=== PATIENT | male | born 1990 | race Caucasian/White ===

== ENCOUNTER 2024-05-10 17:39 | Emergency (ER) | payer OTHER, SELFPAY ==
--- NOTE | 2024-05-10 17:50 | ED.GENADULT ---
HPI - General Adult General Chief complaint: Extremity Problem,Nontraumatic Stated complaint: painful bmp on knee Source: patient Mode of arrival: ambulatory Limitations: no limitations History of Present Illness HPI narrative: 33-year-old male patient presents to [facility] with complaints of right knee pain. Patient states he had a little what he thought was an ingrown hair to the kneecap couple of days ago and Pepcid. Patient states that now the skin around it is becoming red, warm and tender to the touch. Denies fevers, body aches or chills. Related Data Home Medications Medication Instructions Recorded Confirmed dextroamphetamine-amphetamine ER PO 05/10/24 15 mg 24hr capsule,extend release Allergies Allergy/AdvReac Type Severity Reaction Status Date / Time No Known Allergies Allergy Verified 05/10/24 17:54 Review of Systems Review of Systems: CONSTITUTIONAL: Denies fever, chills, or sweats. EYES: Denies visual changes, redness, or discharge. ENT: Denies rhinorrhea, congestion, sore throat, or otalgia. CARDIOVASCULAR: Denies chest pain, palpitations, or edema. RESPIRATORY: Denies cough or dyspnea. GASTROINTESTINAL: Denies abdominal pain, nausea, vomiting, or diarrhea. GENITOURINARY: Denies dysuria or hematuria. SKIN: Denies rash or itching. Positive redness to right knee MUSCULOSKELETAL: Denies back pain, joint pain, or myalgia. NEUROLOGIC: Denies headache, numbness, or weakness. PSYCHIATRIC: Denies anxiety or depression. PMFSH Comments At the time of my signature I agree with nursing past medical history, surgical, social, and family history. There is no relevant family history pertinent to the presenting complaint. Exam Narrative: GENERAL: Well-appearing, well-nourished, and in no acute distress. HEAD: Normocephalic, atraumatic. EYES: PERRLA and EOMI. ENT: Nares clear, no rhinorrhea or epistaxis. Mucous membranes moist. NECK: Supple. No lymphadenopathy CHEST: Clear to auscultation. No respiratory distress. HEART: Regular rate and rhythm. No murmur heard. Normal peripheral pulses. ABDOMEN: Soft, nontender, nondistended, normal active bowel sounds. EXTREMITIES: Normal range of motion. No edema. SKIN: Warm, dry, no rash. patient has round erythema good area to the right knee measuring about 5 x 7. It is warm to the touch. Patient has good range of motion to the knee no concerns are in her joint infection. NEURO: No focal deficits. Alert and oriented x3. Course Course Level of Care: Express Care Visit Vital Signs Vital signs: Vital Signs Temperature 36.9 C 05/10/24 17:55 Pulse Rate 82 05/10/24 17:55 Respiratory Rate 16 05/10/24 17:55 Blood Pressure 149/95 H 05/10/24 17:55 Pulse Oximetry 99 05/10/24 17:55 Oxygen Delivery Room Air 05/10/24 17:55 Temperature 36.9 C 05/10/24 17:55 Pulse Rate 82 05/10/24 17:55 Respiratory Rate 16 05/10/24 17:55 Blood Pressure 149/95 H 05/10/24 17:55 Pulse Oximetry 99 05/10/24 17:55 Oxygen Delivery Room Air 05/10/24 17:55 Vital signs reviewed. Medical Decision Making MDM Narrative Medical decision making narrative: Discussed with patient we will discharge him home with oral antibiotics, use warm compresses to the area and the small pimple in the middle of the redness may pop on its own. May take Tylenol ibuprofen for pain. The area was marked and discussed with patient that if the redness goes outside the marked area he needs to be reassessed. Differential Diagnosis Differential Diagnosis: Differential diagnosis: Knee contusion, sprain, ligament injury, patellar dislocation, joint dislocation, patella or tibial plateau fracture, Riggins's cyst, DVT, meniscus tear, PCL tear, prepatellar bursitis, septic joint, gout, tumor. Children: Xjmf-Hprty-Adnndmc or Arianna-Schlatter disease. Vital Signs Vital Signs: Vital Signs Temperature 36.9 C 05/10/24 17:55 Pulse Rate 82 05/10/24 17:55 Respiratory Rate 16 05/10/24 17:55 Blood Pressure 149/95 H 05/10/24 17:55 Pulse Oximetry 99 05/10/24 17:55 Oxygen Delivery Room Air 05/10/24 17:55 Temperature 36.9 C 05/10/24 17:55 Pulse Rate 82 05/10/24 17:55 Respiratory Rate 16 05/10/24 17:55 Blood Pressure 149/95 H 05/10/24 17:55 Pulse Oximetry 99 05/10/24 17:55 Oxygen Delivery Room Air 05/10/24 17:55 Critical Care Time Critical Care Time Critical Care Time: No Discharge Plan Discharge Clinical Impression: Cellulitis of knee, right Patient Disposition: Home, Self-Care Condition: Stable Instructions: Antibiotic Form, Cellulitis (ED) Additional Instructions: Take the prescribed antibiotic medicine you are given as directed until it is gone. Take it even if you feel better. It treats the infection and stops it from returning. Not taking all the medicine can make future infections hard to treat. Keep the infected area clean. When possible, raise the infected area above the level of your heart. This helps keep swelling down. May take Tylenol ibuprofen as needed for pain Take your temperature once a day for a week to monitor for fevers. If you do spike a fever please call your doctor right away. Wash your hands often to prevent spreading the infection. In the future, wash your hands before and after you touch cuts, scratches, or bandages. This will help prevent infection. Please call your doctor today and be scheduled for follow-up appointments in regards to being evaluated for vascular disease. When to call your healthcare provider Call your healthcare provider immediately if you have any of the following: Difficulty or pain when moving the joints above or below the infected area Discharge or pus draining from the area Fever of 100.4?F (38?C) or higher, or as directed by your healthcare provider Pain that gets worse in or around the infected Redness that gets worse in or around the infected area, particularly if the area of redness expands to a wider area Shaking chills Swelling of the infected area Vomiting Prescriptions: New cephalexin 500 mg capsule 500 mg PO Q12H 7 Days Qty: 14 0RF No Action dextroamphetamine-amphetamine 15 mg capsule,extended release 24hr PO Follow-up/Referrals: Heaven,MD Jayme [Primary Care Provider] - Time of Disposition: 18:10
[2024-05-10 17:55] VITALS: BP 149/95; PULSE 82; RESP 16; TEMP 36.9; O2SAT 99
== END 2024-05-10 18:12 | disposition home or self-care (01) ==
PROVIDERS: Emergency Provider Nurse Practitioner Family; PCP Family Medicine
DX: L03.115 Cellulitis of right lower limb (principal)
CPT/HCPCS: 99213; G0463

== ENCOUNTER 2025-03-19 09:24 | Emergency (ER) | payer OTHER, SELFPAY ==
[2025-03-19 09:30] VITALS: BP 134/84; PULSE 75; RESP 14; TEMP 36.6; O2SAT 99
--- NOTE | 2025-03-19 09:46 | ED.SKABFB ---
HPI - Skin/Abscess/Foreign Bdy General Chief complaint: Skin/Abscess/Foreign Body Stated complaint: Rash Time Seen by Provider: 03/19/25 09:46 Source: patient Mode of arrival: ambulatory Limitations: no limitations History of Present Illness HPI narrative: 34-year-old male presents with complaint of hives and itching. Started yesterday. No new exposure to food, cleaning products, lotions. denies any significant stress. All systems reviewed and negative except as noted above Related Data Home Medications ?Medication ?Instructions ?Recorded ?Confirmed ?Last Taken ?Type dextroamphetamine-amphetamine ER PO 05/10/24 Unknown History 15 mg 24hr capsule,extend release Allergies Allergy/AdvReac Type Severity Reaction Status Date / Time No Known Allergies Allergy Verified 03/19/25 09:34 PMFSH Comments At time of signature, agree with nursing past medical, surgical, social and family history. There is no relevant family history pertinent to the presenting complaint. Exam Narrative: GENERAL: This is a well-nourished, well-developed patient, in no apparent distress. HEAD: normocephalic, atraumatic. EYES: PERRL. Sclera clear/white. Vision is grossly intact. EARS: External ears normal NOSE: External nose normal NECK: Neck supple, non-tender without lymphadenopathy, masses or thyromegaly. CARDIOVASCULAR: Regular rate and rhythm without murmurs, gallops, or rubs. RESPIRATORY: Clear to auscultation. Breath sounds equal bilaterally. No wheezes, rales, or rhonchi. SKIN: warm, Dry, intact, good texture and turgor. erythematous hives to trunk, bilateral upper extremities. NEURO: awake, alert, and oriented to person, place and time. There were no obvious focal neurologic abnormalities. EXTREMITIES: No joint tenderness, effusion, or edema noted. Course Course Level of Care: Express Care Visit Vital Signs Vital signs: Vital Signs Temperature 36.6 C 03/19/25 09:30 Pulse Rate 75 03/19/25 09:30 Respiratory Rate 14 03/19/25 09:30 Blood Pressure 134/84 03/19/25 09:30 Pulse Oximetry 99 03/19/25 09:30 Oxygen Delivery Room Air 03/19/25 09:30 Temperature 36.6 C 03/19/25 09:30 Pulse Rate 75 03/19/25 09:30 Respiratory Rate 14 03/19/25 09:30 Blood Pressure 134/84 03/19/25 09:30 Pulse Oximetry 99 03/19/25 09:30 Oxygen Delivery Room Air 03/19/25 09:30 Reviewed MDM - Skin/Abscess/Foreign Bdy MDM Narrative Medical decision making narrative: will treat hives with prednisone and Zyrtec. Patient is well-appearing, nontoxic. No difficulty breathing or swallowing. Differential Diagnosis Differential diagnosis: Likely urticaria Discharge Plan Discharge Clinical Impression: Acute urticaria Patient Disposition: Home Condition: Stable Instructions: Urticaria (ED) Additional Instructions: Take prednisone as prescribed. Continue taking a daily antihistamine such as Zyrtec. Follow-up with your primary care physician as needed. Patient Language: Slovak Prescriptions: New prednisone 20 mg tablet See Rx Instructions .ROUTE .COMPLEX Qty: 10 0RF Rx Instructions: Take 2 tablets daily for 3 days then 1 tablet daily for 4 days. No Action dextroamphetamine-amphetamine 15 mg capsule,extended release 24hr PO Follow-up/Referrals: Heaven,MD Jayme [Primary Care Provider, Unknown] Time of Disposition: 09:53
--- OUTSIDE RECORDS SUMMARY | 2025-03-19 10:18 | XMS_ITS | Clinical Summary ---
Author Organization [facility] Address [address] [place] [id number] Care Team Providers Care Political Researcher Name Role Phone Jayme Collado MD Primary Care Provider [phone] Allergies No known active allergies Medications dextroamphetamine- amphetamine XR (Adderall XR) 15 mg 24 hr capsuleIndications :Attention deficit hyperactivity disorder (ADHD), predominantly hyperactive type Take 1 capsule (15 mg total) by mouth every morning 30 capsule 5 Active Active Problems Problem Noted Date Diagnosed Date Encounter for annual health examination 08/24/19 22 Dysfunction of both eustachian tubes 08/20/2021 Immunizations Immunization Administration Dates Next Due DTP 01/09/1995, 3,01/22/1991,08/21,03/20/1990 Hep B, Adolescent or Pediatric 09/12/1999,1998,02/14/1999 HiB 12/21/1992,12/23/1991,01/22/1991 Influenza, Quadrivalent, Spl it, Preservative Free, Intramuscular 04/20/2022 Influenza, Unspecified 02/15/2024(Deferr ed: Patient decision),02/02/2023(Deferred: Patient decision),02/02/2022(Deferred: Patient decision) MMR 01/09/1995,12/23/1991 OPV 01/09/1995, 3,01/22/1991,08/21,03/20/1990 Td, adsorbed 08/25/2003 Tdap 04/20/2022 Surgical History Surgery Date Site/Laterality Comments MYRINGOTOMY W/ TUBES Medical History Medical History Date Comments Ear problems Family History Medical History Relation Name Comments Hyperlipidemia Father Hypertension Mother Cancer Other Diabetes Other Heart disease Other Relation Name Status Comments Father Alive Mother Alive Other Social History Tobacco Use Types Packs/Day Years Used Date Smoking Tobacco: Never Smokeless Tobacco: Never Tobacco Cessation:Counseling Given: Not Answered AUDIT-C Answer Date Recorded Q1: How often do you have a drink containing alc ohol? Monthly or less 02/15/2024 Q2: How many drinks containi ng alcohol do you have on a typical day when you are drinking? 1 or 2 02/15/2024 Q3: How often do you have si x or more drinks on one occasion? 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 Gender Identity Not on file Sexual Orientation Not on file Obstetrics History Last Filed Vital Signs Vital Sign Reading Time Taken Comments Blood Pressure 121/82 02/15/2024 11:14 AM CDT Pulse 73 02/15/2024 11:14 AM CDT Temperature 36.7 C (98.1 F) 02/15/2024 11:14 AM CDT Respiratory Rate 18 02/15/2024 11:1 4 AM CDT Oxygen Saturation 98% 02/15/2024 11: 14 AM CDT Inhaled Oxygen Concentration - - Weight 110.4 kg (243 lb 6.4 oz) 024 11:14 AM CDT Height 198.1 cm (6' 6) 02/15/2024 11:1 4 AM CDT Body Mass Index 28.13 02/15/2024 11:14 AM CDT Plan of Treatment Health Maintenance Due Date Last Done Comments Hepatitis C Screening 1989 Varicella Vaccines (1 of 2 - 13+ 2-dose series) 2002 HPV Vaccines (1 - 3-dose SCDM series) 2016 Covid-19 Vaccine ( season) 2025 09/24/2020, 09/03/2020 Influenza Vaccine (#1) 2025 04/20/2022 Depression Screening 02/14/2025 02/15/2024, 02/15/2024, 02/13/2023, Additional history exists Regular Well Visit/Exam 18-64 02/14/2025 02/15/2024, 02/13/2023, 08/23/2021 DTaP/Tdap/Td Vaccine (7 - Td or Tdap) 04/20/2032 04/20/2022, 08/25/2003, 01/09/1995, Additional history exists Hepatitis B Screening Completed 09/12/1999 , 03/21/1999, 02/14/1999 Pneumococcal vaccine <65 Aged Out No longer eligible based on patient's age to complete this topic Insurance Hot Dot ACCESS Hot Dot ACCESS Locomizer OPEN ACCESS Care Teams Political Researcher Relationship Specialty Start Date End Date Jayme Collado MD [address] [place] [address] PCP - General Family Medicine 02/11/25
== END 2025-03-19 09:58 | disposition home or self-care (01) ==
PROVIDERS: Emergency Provider Nurse Practitioner Family; PCP Family Medicine
DX: L50.9 Urticaria, unspecified (principal)
CPT/HCPCS: 99213; G0463